=== PATIENT | male | born 1970 | race Caucasian/White ===

== ENCOUNTER 2018-07-22 11:37 | Inpatient (IN) | payer BC, MEDICAID ==
[2018-07-22 12:13] LABS: BASOPHILS # (AUTO) 0.2 10^3/uL (0.0-0.1); BASOPHILS % (AUTO) 2.1 %; EOSINOPHILS # (AUTO) 0.4 10^3/uL (0.0-0.7); EOSINOPHILS % (AUTO) 3.6 %; HGB - HEMOGLOBIN 17.7 g/dL (14.0-18.0); LYMPHOCYTES # (AUTO) 2.7 10^3/uL (1.5-3.5); LYMPHOCYTES % (AUTO) 24.1 %; MEAN CORPUSCULAR HEMOGLOBIN 31.5 pg (27.0-31.0); MEAN CORPUSCULAR HGB CONC 34.2 g/dL (32.0-36.0); MEAN PLATELET VOLUME 7.8 fL (7.4-11.4); MONOCYTES # (AUTO) 0.8 10^3/uL (0.0-1.0); MONOCYTES % (AUTO) 7.2 %; NEUTROPHILS # (AUTO) 7.2 10^3/uL (1.5-6.6); PLT - PLATELET COUNT 237 10^3/uL (130-450); RED BLOOD COUNT 5.63 10^6/uL (4.70-6.10); RED CELL DISTRIBUTION WIDTH 13.1 % (12.0-15.0); WHITE BLOOD COUNT 11.4 x10^3/uL (4.8-10.8)
[2018-07-22 12:20] LABS: ALBUMIN 3.8 g/dL (3.2-5.5); BILIRUBIN,TOTAL 0.5 mg/dL (0.2-1.0); CREATININE 0.9 mg/dL (0.6-1.2); TOTAL PROTEIN 7.6 g/dL (6.7-8.2)
--- NOTE | 2018-07-22 12:34 | XRAY Report ---
Reason: chest pain Procedure Date: 07/22/2018 Accession Number: [id number] / [id number] Procedure: XR - Chest 1 View X-Ray CPT Code: 87520 FULL RESULT: EXAM: CHEST RADIOGRAPHY EXAM DATE: 07/22/2018 12:19 PM. CLINICAL HISTORY: Chest pain. COMPARISON: None. TECHNIQUE: 1 view. FINDINGS: Lungs/Pleura: No focal opacities evident. No pleural effusion. No pneumothorax. Mediastinum: Within exam limitations, the cardiomediastinal contour is normal. Other: None. IMPRESSION: Limited examination with no acute cardiopulmonary abnormality detected. RADIA
[2018-07-22] MEDS ORDERED: SODIUM CHLORIDE 0.9% 1,000 ML IV ONE (12:57)
[2018-07-22] MEDS ORDERED: METOPROLOL 5 MG/5 ML VIAL IVP STA (13:10)
[2018-07-22] MEDS ORDERED: ASPIRIN CHEW 81 MG TABLET PO STA (13:10)
--- NOTE | 2018-07-22 13:13 | ED Physician Documentation ---
PD HPI CHEST PAIN - Stated complaint Stated Complaint: SOA - Chief complaint Chief Complaint: Cardiac - History obtained from History obtained from: Patient, Family - History of Present Illness Timing - onset: How many hours ago (2) Timing - onset during: Rest Timing - duration: Hours (2) Timing - details: Gradual onset Pain level max: 4 Pain level now: 4 Quality: Pressure, Tightness Location: Substernal Radiation: Left upper extremity, Right upper extremity Improved by: Nothing Worsened by: Other (nothing) Associated symptoms: Shortness of air, Diaphoresis, Nausea, Feeling faint / dizzy. No: Vomiting, General Weakness, Palpitations, Cough Similar symptoms before: Has not had sx before Recently seen: Not recently seen Review of Systems Ten Systems: 10 systems reviewed and negative Constitutional: denies: Fever, Chills Throat: denies: Sore throat Cardiac: denies: Palpitations, Pedal edema, Calf pain Respiratory: denies: Dyspnea, Cough, Wheezing GI: denies: Abdominal Pain, Nausea, Vomiting, Diarrhea Skin: denies: Rash Musculoskeletal: denies: Neck pain, Back pain Neurologic: denies: Focal weakness, Numbness PD PAST MEDICAL HISTORY - Past Medical History Past Medical History: Yes Cardiovascular: Hypertension Endocrine/Autoimmune: Other Other Past Medical History: had diabetes, lost weight. - Past Surgical History Past Surgical History: No - Present Medications Home Medications: Ambulatory Orders Medication Instructions Recorded Confirmed No Known Home Medications 07/22/18 07/22/18 - Allergies Allergies/Adverse Reactions: Allergies Allergy/AdvReac Type Severity Reaction Status Date / Time No Known Drug Allergies Allergy Verified 07/22/18 11:53 - Social History Does the pt smoke?: Yes Smoking Status: Current every day smoker Does the pt drink ETOH?: Yes Does the pt have substance abuse?: No PD ED PE NORMAL - Vitals Vital signs reviewed: Yes - General General: Alert and oriented X 3, No acute distress, Well developed/nourished, Other (obese male) - HEENT HEENT: PERRL, Moist mucous membranes - Neck Neck: Supple, no meningeal sign - Cardiac Cardiac: RRR, Strong equal pulses - Respiratory Respiratory: No respiratory distress, Clear bilaterally - Abdomen Abdomen: Soft, Non tender, Non distended - Derm Derm: Warm and dry - Extremities Extremities: No edema, No calf tenderness / cord - Neuro Neuro: Alert and oriented X 3, environmental education specialist 2-12 intact, No motor deficit, No sensory deficit - Psych Psych: Normal mood, Normal affect Results - Vitals Vitals: Vital Signs - 24 hr 07/22/18 07/22/18 07/22/18 11:40 13:09 13:20 Temperature 36 C L Heart Rate 98 102 H 89 Respiratory 18 19 19 Rate Blood Pressure 192/121 H 198/125 H 181/108 H O2 Saturation 99 98 98 07/22/18 13:32 Temperature Heart Rate 91 Respiratory 23 Rate Blood Pressure 176/121 H O2 Saturation 96 Oxygen O2 Source Room air - EKG (time done) 1143 Rate: Rate (enter#) (103) Rhythm: Sinus tachycardia [place]: Normal Intervals: Normal DE QRS: Normal Ischemia: Normal ST segments - Labs Labs: Laboratory Tests 07/22/18 07/22/18 07/22/18 11:53 11:53 11:53 WBC RBC Hgb Hct MCV MCH MCHC RDW Plt Count MPV Neut # (Auto) Lymph # (Auto) [place] # (Auto) Eos # (Auto) Baso # (Auto) Absolute Nucleated RBC Nucleated RBC % PT INR D-Dimer Sodium Potassium Chloride Carbon Dioxide Anion Gap BUN Creatinine Estimated GFR (MDRD) Glucose Glycated Hemoglobin Estim Average Glucose Calcium Phosphorus 3.5 Magnesium 2.6 Total Bilirubin GGT 55 AST ALT Alkaline Phosphatase Troponin I B-Natriuretic Peptide 26 Total Protein Albumin Globulin Albumin/Globulin Ratio Lipase Ethyl Alcohol < 5.0 07/22/18 07/22/18 07/22/18 11:55 11:55 11:55 WBC 11.4 H RBC 5.63 Hgb 17.7 Hct 51.8 MCV 92.0 MCH 31.5 H MCHC 34.2 RDW 13.1 Plt Count 237 MPV 7.8 Neut # (Auto) 7.2 H Lymph # (Auto) 2.7 [place] # (Auto) 0.8 Eos # (Auto) 0.4 Baso # (Auto) 0.2 H Absolute Nucleated RBC 0.01 Nucleated RBC % 0.0 PT INR D-Dimer Sodium 129 L Potassium 4.3 Chloride 93 L Carbon Dioxide 22 Anion Gap 14.0 H BUN 11 Creatinine 0.9 Estimated GFR (MDRD) 90 Glucose 238 H Glycated Hemoglobin Estim Average Glucose Calcium 9.0 Phosphorus Magnesium Total Bilirubin 0.5 GGT AST 27 ALT 36 Alkaline Phosphatase 69 Troponin I 0.06 B-Natriuretic Peptide Total Protein 7.6 Albumin 3.8 Globulin 3.8 Albumin/Globulin Ratio 1.0 Lipase 40 Ethyl Alcohol 07/22/18 07/22/18 07/22/18 11:55 11:55 13:16 WBC RBC Hgb Hct MCV MCH MCHC RDW Plt Count MPV Neut # (Auto) Lymph # (Auto) [place] # (Auto) Eos # (Auto) Baso # (Auto) Absolute Nucleated RBC Nucleated RBC % PT 10.7 INR 1.0 D-Dimer < 200.0 L Sodium Potassium Chloride Carbon Dioxide Anion Gap BUN Creatinine Estimated GFR (MDRD) Glucose Glycated Hemoglobin 8.5 H Estim Average Glucose 197 H Calcium Phosphorus Magnesium Total Bilirubin GGT AST ALT Alkaline Phosphatase Troponin I B-Natriuretic Peptide Total Protein Albumin Globulin Albumin/Globulin Ratio Lipase Ethyl Alcohol - Rads (name of study) cxr Radiology: Prelim report reviewed, EMP read contemporaneously, See rad report (no acute disease) PD MEDICAL DECISION MAKING - ED course Complexity details: reviewed results, re-evaluated patient, considered differential, d/w patient, d/w family, d/w [employer] consultant ED course: 48-year-old male with chest pain today, concerning for acute coronary syndrome. He appears to be diabetic based on his elevated blood glucose, hypertensive, smokes and is obese and lives a sedentary lifestyle. High risk for cardiac etiology. Discussed the case with Dr. Beltran, hospitalist who accepts. Patient was given metoprolol and aspirin here. This document was made in part using voice recognition software. While efforts are made to proofread this document, sound alike and grammatical errors may occur. Departure - Departure Disposition: ED Place in Observation Clinical Impression: Chest pain Qualifiers: Chest pain type: unspecified Qualified Code(s): R07.9 - Chest pain, unspecified Hypertension Qualifiers: Hypertension type: unspecified Qualified Code(s): I10 - Essential (primary) hypertension Diabetes Qualifiers: Diabetes mellitus type: type 2 Diabetes mellitus trouble clerk insulin use: without usp use Diabetes mellitus complication status: with unspecified complications Qualified Code(s): E11.8 - Type 2 diabetes mellitus with unspecified complications Condition: Stable Discharge Date/Time: 07/22/18 14:46
[2018-07-22] MEDS ORDERED: ACETAMINOPHEN 325 MG TABLET PO PRN (13:33)
[2018-07-22] MEDS ORDERED: PROCHLORPERAZINE 10 MG/2 ML VIAL IVP PRN (13:33)
[2018-07-22] MEDS ORDERED: SODIUM CHLORIDE FLUSH 0.9% 10 ML SYRINGE IVP PRN (13:33)
[2018-07-22] MEDS ORDERED: HYDROmorphone 1 MG/ML CARPUJECT IVP PRN (13:33)
[2018-07-22 14:03] LABS: HB2 TOTAL 20.7 g/dL; HEMOGLOBIN A1C 1.44 g/dL; HEMOGLOBIN A1C % 8.5 % (4.6-6.2)
[2018-07-22 14:10] LABS: PT - PROTHROMBIN TIME 10.7 secs (9.9-12.6)
[2018-07-22 14:11] LABS: MAGNESIUM 2.6 mg/dL (1.7-2.8); PHOSPHORUS 3.5 mg/dL (2.5-4.6)
[2018-07-22] MEDS ORDERED: NITROGLYCERIN SL 0.4 MG TABLET SL PRN (14:45)
[2018-07-22] MEDS: NITROGLYCERIN 2% PASTE TOP SCH ×2 (15:40→22:25)
[2018-07-22] MEDS: PANTOPRAZOLE 40 MG TABLET PO SCH (15:40)
[2018-07-22] MEDS: METOPROLOL TARTRATE 25 MG TABLET PO SCH (15:41)
[2018-07-22] MEDS ORDERED: NICOTINE 14 MG PATCH TOP SCH (16:00)
[2018-07-22] MEDS: INSULIN ASPART 300 UNIT/3 ML PEN SUBQ SCH ×2 (17:37→20:29)
[2018-07-22] MEDS: SODIUM CHLORIDE FLUSH 0.9% 10 ML SYRINGE IVP SCH (17:37)
[2018-07-22] MEDS ORDERED: ATORVASTATIN 40 MG TABLET PO SCH (18:25)
[2018-07-22 18:41] LABS: BILIRUBIN,URINE NEGATIVE (NEGATIVE); CLARITY,URINE CLEAR (CLEAR); GLUCOSE, URINE (UA) 100 mg/dL (NEGATIVE); KETONES,URINE (UA) NEGATIVE (NEGATIVE); LEUKOCYTE ESTERASE, URINE NEGATIVE (NEGATIVE); NITRITE,URINE NEGATIVE (NEGATIVE); OCCULT BLOOD,URINE NEGATIVE (NEGATIVE); PROTEIN,URINE 100 mg/dL (NEGATIVE); UROBILINOGEN,URINE 0.2 (NORMAL) E.U./dL (NORMAL)
[2018-07-22] MEDS ORDERED: HEPARIN 5,000 UNIT/ML VIAL IVP ONE (18:45)
[2018-07-22] MEDS ORDERED: CLOPIDOGREL 300 MG TABLET PO ONE (18:57)
[2018-07-22] MEDS: HEPARIN 25000UNITS/500ML (D5W) 25,000 UNIT/500 ML BAG IV SCH (19:09)
[2018-07-22 19:11] LABS: RBC,URINE None Seen /HPF (0-5); SQUAMOUS EPITHELIAL CELL,UR NONE SEEN (<= Few)
[2018-07-22 19:12] LABS: BACTERIA,URINE None Seen /HPF (None Seen)
[2018-07-22] MEDS: chlordiazePOXIDE 25 MG CAPSULE PO SCH ×2 (19:47→23:56)
--- NOTE | 2018-07-22 20:24 | HISTORY & PHYSICAL EXAMINATION ---
DATE OF SERVICE: 07/22/2018 Physician: Ethel Vogt MD HISTORY OF PRESENT ILLNESS: This is a 48-year-old white man who is not on any medications, has not seen a doctor in about 10-15 years, is moving to [facility] from [place] to relocate his business here. The patient describes a history of being told he had diabetes 15 years ago, and he was on metformin and Lipitor for a while, was able to stop his heavy drinking and follow a diet, which helped him lose about 70 pounds in 6 months, and he was able to come off of metformin. He has also been on no medications whatsoever for about 8-1/2 years, he states. Two months ago, he started to develop foot "tingling", which he had when his diabetes was diagnosed 15 years ago; therefore, he thought his sugars were again high, but he has not sought medical care. Approximately 3 weeks ago, he started to develop episodes of anterior chest pain with radiation to the neck, shoulders, and down both arms, along with diaphoresis and shortness of breath, which would usually occur after eating an excessively big meal, but also at other times, not necessarily with exertion. He was worried enough to call his adult daughter to stay with him during these events and would wait them out, took nothing for them. He had a similar event today while he was just sitting, not after a large meal, it lasted longer and was more severe than the previous ones, he rated this 7/10, and had the associated symptoms. The patient tried to take Tums for this, and there was no effect today. Because of its worse presentation, he wanted to come to the emergency room. By the time he was in transit, the discomfort was rated 2/10, and on arrival, it was already gone and has not recurred. The patient remembers having an EKG 15 years ago, when there was an episode of indigestion, but has never had any other cardiac testing. He states that the old indigestion is unlike these current symptoms. MEDICATIONS: None. ALLERGIES: NONE. SOCIAL HISTORY: The patient is a 1 to 1-1/2 pack a day smoker daily, drinks a 12-pack of beer a day, plus occasionally binges using vodka. His last beer intake was last night, which is now 24 hours ago. He does not use marijuana and uses no illicit drugs. 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 He is , his adult daughter lives with him. FAMILY HISTORY: Mother of valvular heart disease complications, father of alcoholic cardiomyopathy. He has 1 daughter, who is healthy. He has no other children. He has no brothers or sisters. REVIEW OF SYSTEMS: A comprehensive review of systems was performed, and the pertinent positives are listed above, the rest are negative. PHYSICAL EXAMINATION GENERAL: Obese white male. He is currently in no distress, but is somewhat fidgety and does appear stressed regarding our discussion of his diagnosis. VITAL SIGNS: Blood pressure in the emergency room was 192/121, heart rate 98- 102, in sinus rhythm. Currently, his blood pressure is 169/88 with a pulse of 86, afebrile, on room air his oxygen saturation is 97%. HEENT: Unremarkable. He appears well kempt, has a large cheema. NECK: Without JVD or carotid bruits. LUNGS: Clear. HEART: Heart sounds normal. No murmur. ABDOMEN: Distended, with probable hepatomegaly, possible fluid wave, possible splenomegaly. Normal bowel sounds. No tenderness. No guarding or rebound. EXTREMITIES: No clubbing, cyanosis, or edema. Good dorsalis pedis pulses. NEUROLOGIC: Grossly intact. LABORATORY DATA: Sodium 129, potassium 4.3, BUN 11, creatinine 0.9, glucose 238. A1c 8.5. Calcium normal, phosphorus normal, magnesium 2.6, GGT 55, liver tests normal, lipase normal. BNP 26. The first troponin was 0.06. The next troponin is elevated at 0.55. DIAGNOSTIC DATA: EKG: Sinus tachycardia, within normal limits. Chest x-ray: Within normal limits. A bedside Echo was also done, which shows an LVEF of 50% with description of global hypokinesis, not regional. IMPRESSION/DIAGNOSES 1. Acute cft-OS-wdkyegagf myocardial infarction. 2. Cardiomyopathy. 3. Diabetes, uncontrolled. 4. Hypertension, uncontrolled. 5. Tobacco abuse. 6. History of hyperlipidemia. 7. Alcohol abuse. 8. Hyponatremia. PLAN: Patient was to be placed in Observation status for management of blood pressure, glucose, and a rule out VT protocol, but he will be admitted to the ICU, started on IV heparin, get a Plavix bolus, Lipitor now, start nitrates and beta blockers, daily aspirin, and have arrangements for transfer for coronary angiogram. The procedure, risks, and benefits were described to the patient, and he is agreeable to the plan, and the daughter is in the room. The Echo is suspicious for him already having the beginning of an alcoholic cardiomyopathy. Beta blockers, specifically Metoprolol over Coreg, will be chosen in light of the acute VT. Cycle complete troponins until they peak and reverse. Obtain an EKG in the morning to evaluate for changes. Begin nitro paste, plus the beta dalton for blood pressure control, and if BP is still elevated, would potentially add Norvasc, which would give coronary vasodilation plus blood pressure control. Start a nicotine patch at 21 mg topically daily because of his high cigarette use. Begin Librium on a scheduled protocol to help prevent him going into DTs, especially during an acute VT. CIWA protocol and p.r.n. Ativan IV will also be ordered. The hyponatremia may be from his beer potomania, and will watch his BMP daily. His diabetes will be managed with a carbohydrate-controlled diet, sliding scale insulin, and this was explained to the patient. In the future, he will probably return back to his metformin plus have aggressive diabetic management. A fasting a.m. lipid panel will be ordered. CODE STATUS: FULL CODE. DEEP VENOUS THROMBOSIS PROPHYLAXIS: Pharmacotherapy. ATTESTATION: The patient is expected to be discharged and transferred to another facility within 96 hours: Yes. TD: 07/22/2018 19:48 STAN
[2018-07-22] MEDS ORDERED: ENOXAPARIN 80 MG/0.8 ML SYRINGE SUBQ SCH (21:00)
[2018-07-22 21:19] LABS: MUDS CUTOFF CONCENTRATIONS CUTOFF CONC BELOW:
[2018-07-22 21:31] LABS: AMPHETAMINE SCREEN,URINE NEGATIVE (NEGATIVE); BENZODIAZEPINES SCREEN, URINE NEGATIVE (NEGATIVE); COCAINE SCREEN URINE NEGATIVE (NEGATIVE); METHADONE SCREEN, URINE NEGATIVE (NEGATIVE); METHAMPHETAMINES SCREEN, URINE NEGATIVE (NEGATIVE); OPIATE SCREEN, URINE NEGATIVE (NEGATIVE); TRICYCLIC ANTIDEPRESSANT,URINE NEGATIVE (NEGATIVE)
[2018-07-22 21:32] LABS: OXYCODONE SCREEN, URINE NEGATIVE (NEGATIVE); PROPOXYPHENE SCREEN, URINE NEGATIVE (NEGATIVE)
[2018-07-22] MEDS ORDERED: METOPROLOL 5 MG/5 ML VIAL IVP SCH (21:53)
[2018-07-23] MEDS ORDERED: METOPROLOL 5 MG/5 ML VIAL IVP PRN (01:39)
[2018-07-23] MEDS: SODIUM CHLORIDE FLUSH 0.9% 10 ML SYRINGE IVP SCH ×2 (02:12→10:47)
[2018-07-23] MEDS: NITROGLYCERIN 2% PASTE TOP SCH ×2 (04:04→09:39)
[2018-07-23 06:37] LABS: BASOPHILS # (AUTO) 0.1 10^3/uL (0.0-0.1); BASOPHILS % (AUTO) 1.2 %; EOSINOPHILS # (AUTO) 0.2 10^3/uL (0.0-0.7); EOSINOPHILS % (AUTO) 3.2 %; HGB - HEMOGLOBIN 16.1 g/dL (14.0-18.0); LYMPHOCYTES # (AUTO) 2.8 10^3/uL (1.5-3.5); LYMPHOCYTES % (AUTO) 36.2 %; MEAN CORPUSCULAR HEMOGLOBIN 31.5 pg (27.0-31.0); MEAN CORPUSCULAR HGB CONC 33.9 g/dL (32.0-36.0); MEAN CORPUSCULAR VOLUME 92.7 fL (80.0-94.0); MEAN PLATELET VOLUME 7.4 fL (7.4-11.4); MONOCYTES # (AUTO) 0.7 10^3/uL (0.0-1.0); MONOCYTES % (AUTO) 8.8 %; NEUTROPHILS # (AUTO) 3.9 10^3/uL (1.5-6.6); NEUTROPHILS % (AUTO) 50.6 %; PLT - PLATELET COUNT 194 10^3/uL (130-450); WHITE BLOOD COUNT 7.6 x10^3/uL (4.8-10.8)
[2018-07-23] MEDS: chlordiazePOXIDE 25 MG CAPSULE PO SCH ×2 (06:48→11:42)
[2018-07-23] MEDS: PANTOPRAZOLE 40 MG TABLET PO SCH (06:48)
[2018-07-23 06:53] LABS: ALBUMIN 3.2 g/dL (3.2-5.5); ALKALINE PHOSPHATASE 59 IU/L (42-121); ALT ALANINE AMINOTRANSFERASE 34 IU/L (10-60); AST ASPARTATE AMINOTRANSFERASE 36 IU/L (10-42); BILIRUBIN,TOTAL 0.6 mg/dL (0.2-1.0); BUN - BLOOD UREA NITROGEN 8 mg/dL (6-20); CALCIUM 8.6 mg/dL (8.5-10.3); CARBON DIOXIDE - CO2 23 mmol/L (21-32); CHLORIDE 96 mmol/L (101-111); CHOLESTEROL 271 mg/dL; CREATININE 0.8 mg/dL (0.6-1.2); GFR - MDRD 104 (>89); GLUCOSE 170 mg/dL (70-100); HDL CHOLESTEROL 27 mg/dL; PHOSPHORUS 4.2 mg/dL (2.5-4.6); SODIUM 131 mmol/L (135-145); TOTAL PROTEIN 6.3 g/dL (6.7-8.2)
[2018-07-23 07:15] LABS: LDL CHOLESTEROL,DIRECT 188 mg/dL
[2018-07-23] MEDS ORDERED: CLOPIDOGREL 75 MG TABLET PO SCH (09:00)
[2018-07-23] MEDS ORDERED: ENOXAPARIN 40 MG/0.4 ML SYRINGE SUBQ SCH (09:00)
[2018-07-23] MEDS ORDERED: NICOTINE 21 MG PATCH TOP SCH (09:00)
[2018-07-23] MEDS ORDERED: ASPIRIN EC 81 MG TABLET PO SCH (09:00)
[2018-07-23] MEDS ORDERED: PRENATAL VITAMIN TABLET PO SCH (09:00)
[2018-07-23] MEDS ORDERED: POLYETHYLENE GLYCOL 3350 17 GM PACKET PO SCH (09:00)
[2018-07-23] MEDS ORDERED: THIAMINE 100 MG TABLET PO SCH (09:00)
[2018-07-23] MEDS ORDERED: INSULIN REGULAR HUMAN 100 UNIT/1 ML 10 ML MDV SUBQ SCH (09:09)
[2018-07-23] MEDS: METOPROLOL TARTRATE 25 MG TABLET PO SCH (09:19)
[2018-07-23] MEDS: HEPARIN 25000UNITS/500ML (D5W) 25,000 UNIT/500 ML BAG IV SCH (09:36)
[2018-07-23] MEDS ORDERED: FENOFIBRATE 48 MG TABLET PO SCH (10:00)
[2018-07-23] MEDS ORDERED: INSULIN ASPART 300 UNIT/3 ML PEN SUBQ SCH (12:00)
[2018-07-23 13:09] VITALS: BP 156/95
--- NOTE | 2018-07-23 13:11 | Discharge Plan ---
Discharge Plan Disposition: 02 Transfer Acute Care Hosp Condition: Stable No Smoking: If you smoke, Please STOP! Call for help.
== END 2018-07-23 13:45 | disposition short-term general hospital (02) | DRG 637 ==
LOC: ED 11:37 → OBS 13:33 → OBSVTOIN 17:45 → ICU 18:26
PROVIDERS: ADMIT Internal Medicine; ATTEND Internal Medicine
DX: E11.9 Type 2 diabetes mellitus without complications (principal); I21.4 Non-ST elevation (NSTEMI) myocardial infarction; I42.6 Alcoholic cardiomyopathy; E87.1 Hypo-osmolality and hyponatremia; E11.65 Type 2 diabetes mellitus with hyperglycemia; I10 Essential (primary) hypertension; F17.210 Nicotine dependence, cigarettes, uncomplicated; F10.10 Alcohol abuse, uncomplicated; E78.5 Hyperlipidemia, unspecified; E78.1 Pure hyperglyceridemia
CPT/HCPCS: 36415; 71045; 80053; 80061; 80306; 80320; 81001; 82977; 83036; 83690; 83721; 83735; 83880; 84100; 84484; 85025; 85379; 85520; 85610; 87150; 93005; 93306; 96361; 96374; 99284; A9270; G0378; J1815; 81003; 87086

== ENCOUNTER 2018-07-23 13:42 | Outpatient (CLI) | payer MEDICAID | END 2018-07-23 13:43 | disposition short-term general hospital (02) | LOC: EMS 13:42 | PROVIDERS: ATTEND Surgery | DX: I21.4 Non-ST elevation (NSTEMI) myocardial infarction (principal) | CPT/HCPCS: A0425; A0426 ==

== ENCOUNTER 2019-01-15 18:25 | Emergency (ER) | payer MEDICAID ==
--- NOTE | 2019-01-15 19:28 | XRAY Report ---
Reason: Chest Pain Procedure Date: 01/15/2019 Accession Number: [id number] / [id number] Procedure: XR - Chest 1 View X-Ray CPT Code: 10430 FULL RESULT: EXAM: CHEST RADIOGRAPHY EXAM DATE: 01/15/2019 07:20 PM. CLINICAL HISTORY: Chest Pain. COMPARISON: CHEST 1 VIEW 07/22/2018 12:04 PM. TECHNIQUE: 1 view. FINDINGS: Lungs/Pleura: Unchanged linear basilar pulmonary opacities could reflect atelectasis. No other consolidation. No evidence of pleural effusion or pneumothorax. Mediastinum: Stable heart size and mediastinum. Other: None. IMPRESSION: 1. No radiographic evidence for acute cardiopulmonary process. RADIA
[2019-01-15 19:37] LABS: BASOPHILS # (AUTO) 0.1 10^3/uL (0.0-0.1); BASOPHILS % (AUTO) 0.5 %; EOSINOPHILS # (AUTO) 0.2 10^3/uL (0.0-0.7); EOSINOPHILS % (AUTO) 1.7 %; HGB - HEMOGLOBIN 15.5 g/dL (14.0-18.0); LYMPHOCYTES # (AUTO) 2.3 10^3/uL (1.5-3.5); LYMPHOCYTES % (AUTO) 21.3 %; MEAN CORPUSCULAR HEMOGLOBIN 30.8 pg (27.0-31.0); MEAN CORPUSCULAR HGB CONC 34.3 g/dL (32.0-36.0); MEAN CORPUSCULAR VOLUME 89.9 fL (80.0-94.0); MEAN PLATELET VOLUME 9.5 fL (7.4-11.4); MONOCYTES # (AUTO) 0.7 10^3/uL (0.0-1.0); NEUTROPHILS # (AUTO) 7.6 10^3/uL (1.5-6.6); NEUTROPHILS % (AUTO) 70.1 %; PLT - PLATELET COUNT 229 10^3/uL (130-450); RED BLOOD COUNT 5.03 10^6/uL (4.70-6.10); RED CELL DISTRIBUTION WIDTH 12.4 % (12.0-15.0); WHITE BLOOD COUNT 10.8 x10^3/uL (4.8-10.8)
[2019-01-15 19:56] LABS: ALBUMIN 3.7 g/dL (3.2-5.5); ALBUMIN/GLOBULIN RATIO 1.1 (1.0-2.2); BILIRUBIN,TOTAL 0.4 mg/dL (0.2-1.0); CALCIUM 8.5 mg/dL (8.5-10.3); CREATININE 0.8 mg/dL (0.6-1.2); TOTAL PROTEIN 7.1 g/dL (6.7-8.2)
--- NOTE | 2019-01-15 19:57 | ED Physician Documentation ---
History of Present Illness - Stated complaint Stated Complaint: CP - Chief complaint Chief Complaint: Cardiac - Additonal information Additional information: This is a 48-year-old male with a history of obesity, coronary artery disease who presents with resolved chest pain. Patient had a catheterization in late June for angina, which showed no severe blockage or stentable stenosis, his material handler loader reportedly told him he had one area of a little bit of narrowing. He has had some stable angina since then, which is treated with nitroglycerin. He follows with [facility] in [place]. He began developing his typical angina which he describes as substernal pressure was around 4 PM this afternoon, he states he took a nitroglycerin and improved but it was his last tablet so he began to become anxious about this, so he came here for further evaluation and for refill of his nitro. Currently his pain is 1 out of 10, and he is feeling well. No shortness of breath, diaphoresis, nausea or vomiting. No radiation of his pain. He took 1 baby aspirin earlier Review of Systems Constitutional: denies: Fever Nose: denies: Rhinorrhea / runny nose Cardiac: reports: Chest pain / pressure Respiratory: denies: Dyspnea GI: denies: Abdominal Pain, Vomiting Skin: denies: Rash Musculoskeletal: denies: Neck pain Neurologic: reports: Reviewed and negative. denies: Generalized weakness Psychiatric: reports: Reviewed and negative Endocrine: reports: Reviewed and negative Immunocompromised: reports: Reviewed and negative PD PAST MEDICAL HISTORY - Past Medical History Cardiovascular: Hypertension Endocrine/Autoimmune: Other - Past Surgical History Past Surgical History: No - Present Medications Home Medications: Ambulatory Orders Medication Instructions Recorded Confirmed Aspirin 81 mg PO DAILY 01/15/19 01/15/19 Atorvastatin Calcium [Lipitor] 80 mg PO DAILY 01/15/19 01/15/19 Clopidogrel [Plavix] 75 mg PO DAILY 01/15/19 01/15/19 Losartan [Cozaar] 100 mg PO DAILY 01/15/19 01/15/19 Metoprolol Tartrate 100 mg PO DAILY 01/15/19 01/15/19 Metoprolol Tartrate [Lopressor] 50 mg PO BID #30 tablet 01/15/19 Nitroglycerin [Nitrostat] 0.4 mg SL PRN PRN #30 tab.subl 01/15/19 Varenicline Tartrate [Chantix] 1 mg PO DAILY 01/15/19 01/15/19 - Allergies Allergies/Adverse Reactions: Allergies Allergy/AdvReac Type Severity Reaction Status Date / Time No Known Drug Allergies Allergy Verified 07/22/18 11:53 - Social History Does the pt smoke?: Yes Smoking Status: Current every day smoker Does the pt drink ETOH?: Yes Does the pt have substance abuse?: No PD ED PE NORMAL - Vitals Vital signs reviewed: Yes - General General: Alert and oriented X 3, No acute distress - HEENT HEENT: PERRL - Neck Neck: Supple, no meningeal sign - Cardiac Cardiac: Other (Tachycardic, regular rhythm) - Respiratory Respiratory: Clear bilaterally - Abdomen Abdomen: Soft, Non tender, Non distended - Derm Derm: Warm and dry - Extremities Extremities: No deformity - Neuro Neuro: Alert and oriented X 3 - Psych Psych: Normal mood, Normal affect Results - Vitals Vitals: Vital Signs - 24 hr 01/15/19 01/15/19 01/15/19 18:36 19:16 20:20 Temperature 36.9 C Heart Rate 114 H 115 H 107 H Respiratory 18 17 17 Rate Blood Pressure 169/115 H 151/101 H 187/96 H O2 Saturation 98 98 96 01/15/19 22:03 Temperature Heart Rate 90 Respiratory 17 Rate Blood Pressure 168/103 H O2 Saturation 98 Oxygen O2 Source Room air - EKG (time done) 21:28 Other comments: Other comments (Rate 92, rhythm sinus, there is a nonspecific IVCD, no significant ST elevation or depression, no abnormal T wave inversions.) - Labs Labs: Laboratory Tests 01/15/19 01/15/19 01/15/19 19:30 19:30 19:30 WBC 10.8 RBC 5.03 Hgb 15.5 Hct 45.2 MCV 89.9 MCH 30.8 MCHC 34.3 RDW 12.4 Plt Count 229 MPV 9.5 Neut # (Auto) 7.6 H Lymph # (Auto) 2.3 [place] # (Auto) 0.7 Eos # (Auto) 0.2 Baso # (Auto) 0.1 Absolute Nucleated RBC 0.00 Nucleated RBC % 0.0 Sodium 134 L Potassium 4.5 Chloride 99 L Carbon Dioxide 24 Anion Gap 11.0 BUN 10 Creatinine 0.8 Estimated GFR (MDRD) 104 Glucose 209 H Calcium 8.5 Total Bilirubin 0.4 AST 26 ALT 34 Alkaline Phosphatase 67 Troponin I High Sens 9.2 Total Protein 7.1 Albumin 3.7 Globulin 3.4 Albumin/Globulin Ratio 1.1 Lipase 27 01/15/19 21:20 WBC RBC Hgb Hct MCV MCH MCHC RDW Plt Count MPV Neut # (Auto) Lymph # (Auto) [place] # (Auto) Eos # (Auto) Baso # (Auto) Absolute Nucleated RBC Nucleated RBC % Sodium Potassium Chloride Carbon Dioxide Anion Gap BUN Creatinine Estimated GFR (MDRD) Glucose Calcium Total Bilirubin AST ALT Alkaline Phosphatase Troponin I High Sens 10.6 Total Protein Albumin Globulin Albumin/Globulin Ratio Lipase - Rads (name of study) CXR Radiology: Other (No acute cardiopulmonary abnormality) PD MEDICAL DECISION MAKING - ED course Complexity details: considered differential (ACS, angina, pneumothorax, pneumonia, PE, dysrhytmia) ED course: On arrival patient has minimal chest discomfort, he states the main reason he came is because he ran out of nitroglycerin and he was anxious that His chest pain may return and he would not be able to treat it. EKG shows no convincing signs of ischemia. He is slightly tachycardic and states that he has been out of his metoprolol becauase he is waiting on insurance to approve his new dose. No leg swelling, shortness of breath, history of blood clots, recent immobilization, and his history of his typical chest pressure that resolved makes PE extremely unlikely. CXR unremarkable. 2 high-sensitivity troponins are both within normal limits. Given his fairly recent catheterization, resolution of his pain, and the tyipcal characteristics of his pain, this appears to be stable angina. He will follow closely with his PCP and return to the ED with any new or worsening chest pain, shortness of breath, or other concerning symptoms. I also discussed he has elevated glucose suggestive of DM, he will follow with his PCP on this. Patient asked for refills of his nitroglycerin and metoprolol, these were given. Departure - Departure Disposition: 01 Home, Self Care Clinical Impression: Stable angina Condition: Good Instructions: ED Chest Pain Angina Stable Follow-Up: Your,Spiral Binder [Other] (For follow up chest discomfort, as soon as possible) Your,PCP [Other] - Within 1 week (For follow up on diabetes) Prescriptions: Metoprolol Tartrate [Lopressor] 50 mg PO BID #30 tablet Nitroglycerin [Nitrostat] 0.4 mg SL PRN PRN #30 tab.subl PRN Reason: Chest Pain Comments: You were seen today for chest pain which improved with nitroglycerin. Your labs are reassuring, this is likely your typical angina, please follow-up closely with your material handler loader. You also have elevated glucose which suggests diabetes, please talk to your primary care provider about restarting medications and lifestyle changes for this. If you are having recurrent chest pain shortness of breath or any other concerning symptoms please return to the emergency department Discharge Date/Time: 01/15/19 22:29
[2019-01-15] MEDS ORDERED: ASPIRIN CHEW 81 MG TABLET PO STA (20:15)
[2019-01-15] MEDS ORDERED: METOPROLOL TARTRATE 50 MG TABLET PO STA (20:37)
[2019-01-15 22:04] VITALS: BP 168/103
[2019-01-15] MEDS ORDERED: NITROGLYCERIN SL 0.4 MG TABLET SL STA (22:22)
== END 2019-01-15 22:29 | disposition home or self-care (01) ==
LOC: ED 18:25
DX: I25.119 Atherosclerotic heart disease of native coronary artery with unspecified angina pectoris (principal); Z98.61 Coronary angioplasty status; R00.0 Tachycardia, unspecified; I10 Essential (primary) hypertension; R73.9 Hyperglycemia, unspecified; E66.9 Obesity, unspecified; F17.200 Nicotine dependence, unspecified, uncomplicated; Z79.82 Long term (current) use of aspirin; Z76.0 Encounter for issue of repeat prescription
CPT/HCPCS: 36415; 71045; 80053; 83690; 84484; 85025; 93005; 99284; A9270

== ENCOUNTER 2019-04-01 22:35 | Emergency (ER) | payer MEDICAID ==
[2019-04-01 22:41] VITALS: BP 150/74
[2019-04-01] MEDS ORDERED: LIDOCAINE VISCOUS 2% 15 ML UDC MM STA (22:49)
[2019-04-01] MEDS ORDERED: OXYMETAZOLINE HCL 100 SPRAYS BOTTLE NAS STA (22:49)
--- NOTE | 2019-04-01 23:02 | ED Physician Documentation ---
PD HPI HEENT - Stated complaint Stated Complaint: NOSEBLEED - Chief complaint Chief Complaint: General - History obtained from History obtained from: Patient - History of Present Illness Timing - onset: Enter time (03:00), Today Timing - details: Abrupt onset, Intermittant Pain level max: 0 Pain level now: 0 Location: Nose Associated symptoms: No: Fever, Congestion, Cough Similar symptoms before: Has not had sx before Recently seen: Not recently seen - Additional information Additional information: c/o atraumatic right nare epistaxis. Onset woke him from sleep at approximately 3 AM this morning and it has been episodic throughout the day. At times he has had large clots with this and he comes to ED for persistent episode over past 30 minutes Review of Systems Constitutional: denies: Fever Ears: denies: Ear pain Nose: reports: Epistaxis. denies: Congestion, Sinus pressure / pain Throat: denies: Sore throat PD PAST MEDICAL HISTORY - Past Medical History Past Medical History: Yes Cardiovascular: Hypertension, [place] Endocrine/Autoimmune: Other - Past Surgical History Past Surgical History: No - Present Medications Home Medications: Ambulatory Orders Medication Instructions Recorded Confirmed Aspirin 81 mg PO DAILY 01/15/19 04/01/19 Atorvastatin Calcium [Lipitor] 40 mg PO DAILY 01/15/19 04/01/19 Clopidogrel [Plavix] 75 mg PO DAILY 01/15/19 04/01/19 Losartan [Cozaar] 100 mg PO DAILY 01/15/19 04/01/19 Metoprolol Tartrate 75 mg PO DAILY 01/15/19 04/01/19 Nitroglycerin [Nitrostat] 0.4 mg SL PRN PRN #30 tab.subl 01/15/19 04/01/19 - Allergies Allergies/Adverse Reactions: Allergies Allergy/AdvReac Type Severity Reaction Status Date / Time No Known Drug Allergies Allergy Verified 04/01/19 22:41 - Social History Does the pt smoke?: Yes Smoking Status: Current every day smoker Does the pt drink ETOH?: Yes Does the pt have substance abuse?: No - Immunizations Immunizations are current?: Yes - POLST Patient has POLST: No PD ED PE NORMAL - Vitals Vital signs reviewed: Yes - General General: Alert and oriented X 3, No acute distress, Well developed/nourished - HEENT HEENT: Moist mucous membranes, Pharynx benign PD ED PE EXPANDED - HEENT HEENT: Other (no active bleeding noted. There is a clot in right nare which comes out when patient blows his nose. Reexamination reveals no active bleeding nor obvious/apparent source of bleeding) Results - Vitals Vitals: Vital Signs - 24 hr 04/01/19 22:39 Heart Rate 112 H Respiratory 14 Rate Blood Pressure 150/74 H O2 Saturation 100 Oxygen O2 Source Room air Procedures - Epistaxis Site: Right Preparation: Clots removed, Lidocaine Treatment: Anterior rhinorocket, Packing inserted Other: Observed - no bleeding, Pt tolerated well PD MEDICAL DECISION MAKING - ED course Complexity details: re-evaluated patient, considered differential, d/w patient ED course: No active bleeding on my exam although he produced a moderate-sized clot of blood when he first came to ED and again on my exam when he blows his nose. He is on plavix and aspirin. without active bleeding nor area s/o source of bleeding, cautery not appropriate. I recommended packing and patient agrees with this. No bleeding during post-packing observation. Departure - Departure Disposition: 01 Home, Self Care Clinical Impression: Epistaxis Condition: Good Instructions: ED Nosebleed, ED Nasal Packing Anterior Removable Discharge Date/Time: 04/02/19 00:13
== END 2019-04-02 00:13 | disposition home or self-care (01) ==
LOC: ED 22:35
DX: R04.0 Epistaxis (principal); I10 Essential (primary) hypertension; Z79.02 Long term (current) use of antithrombotics/antiplatelets; Z79.82 Long term (current) use of aspirin; F17.200 Nicotine dependence, unspecified, uncomplicated
CPT/HCPCS: 30901; 99282; 99283; A9270

== ENCOUNTER 2019-04-02 22:46 | Emergency (ER) | payer MEDICAID ==
[2019-04-02 23:28] LABS: BASOPHILS # (AUTO) 0.1 10^3/uL (0.0-0.1); BASOPHILS % (AUTO) 0.6 %; EOSINOPHILS # (AUTO) 0.2 10^3/uL (0.0-0.7); EOSINOPHILS % (AUTO) 1.6 %; HGB - HEMOGLOBIN 12.3 g/dL (14.0-18.0); LYMPHOCYTES # (AUTO) 3.3 10^3/uL (1.5-3.5); LYMPHOCYTES % (AUTO) 22.6 %; MEAN CORPUSCULAR HEMOGLOBIN 30.8 pg (27.0-31.0); MEAN CORPUSCULAR HGB CONC 34.7 g/dL (32.0-36.0); MEAN CORPUSCULAR VOLUME 88.5 fL (80.0-94.0); MEAN PLATELET VOLUME 9.3 fL (7.4-11.4); MONOCYTES # (AUTO) 1.1 10^3/uL (0.0-1.0); MONOCYTES % (AUTO) 7.4 %; NEUTROPHILS # (AUTO) 9.7 10^3/uL (1.5-6.6); NEUTROPHILS % (AUTO) 67.3 %; PLT - PLATELET COUNT 254 10^3/uL (130-450); RED CELL DISTRIBUTION WIDTH 12.2 % (12.0-15.0); WHITE BLOOD COUNT 14.4 x10^3/uL (4.8-10.8)
--- NOTE | 2019-04-03 00:24 | ED Physician Documentation ---
PD HPI HEENT - Stated complaint Stated Complaint: BLOODY NOSE - Chief complaint Chief Complaint: Heent - History obtained from History obtained from: Patient - History of Present Illness Timing - onset: Yesterday Timing - details: Abrupt onset, Intermittant Pain level max: 0 Pain level now: 0 Location: Nose Recently seen: Emergency Dept (T+R yesterday for same) - Additional information Additional information: T+R from this ED yesterday for atraumatic right nare epistaxis. A 4.5 cm anterior rhino rocket was placed yesterday without recurrence of bleeding during ED observation after the procedure and he was discharged home. He says he woke up a few hours later with small amount of blood from left nare and sensation of something in back of throat which he eventually was able to spit out and this was a large clot of blood. During the day he had episodes of bleeding from left nare as well as episodes of bleeding into back of throat. He felt as though the right nare rhino rocket was slowly deflating and he used a syringe to put more air into the device's balloon with initial good results but tonight he felt as though it was continuing to deflate, and he continued to have episodic bleeding from left nare and posterior o/p. He deflated the balloon and removed it. He says there was no clot adherent to the device. Review of Systems Constitutional: denies: Fever Nose: reports: Epistaxis PD PAST MEDICAL HISTORY - Past Medical History Past Medical History: Yes Cardiovascular: Hypertension, [place] Respiratory: None Neuro: None Endocrine/Autoimmune: Other GI: None : None HEENT: None Psych: None Musculoskeletal: None Derm: None - Past Surgical History Past Surgical History: No Ortho: Other - Present Medications Home Medications: Ambulatory Orders Medication Instructions Recorded Confirmed Aspirin 81 mg PO DAILY 01/15/19 04/02/19 Atorvastatin Calcium [Lipitor] 40 mg PO DAILY 01/15/19 04/02/19 Clopidogrel [Plavix] 75 mg PO DAILY 01/15/19 04/02/19 Losartan [Cozaar] 100 mg PO DAILY 01/15/19 04/02/19 Metoprolol Tartrate 75 mg PO DAILY 01/15/19 04/02/19 Nitroglycerin [Nitrostat] 0.4 mg SL PRN PRN #30 tab.subl 01/15/19 04/02/19 - Allergies Allergies/Adverse Reactions: Allergies Allergy/AdvReac Type Severity Reaction Status Date / Time No Known Drug Allergies Allergy Verified 04/02/19 22:59 - Social History Does the pt smoke?: Yes Smoking Status: Current every day smoker Does the pt drink ETOH?: Yes Does the pt have substance abuse?: No - Immunizations Immunizations are current?: Yes - POLST Patient has POLST: No PD ED PE NORMAL - Vitals Vital signs reviewed: Yes - General General: Alert and oriented X 3, No acute distress, Well developed/nourished - HEENT HEENT: Pharynx benign PD ED PE EXPANDED - HEENT HEENT: Other (no active bleeding in either nare. no blood in posterior oropharynx. ) Results - Vitals Vitals: Vital Signs - 24 hr 04/02/19 04/03/19 22:54 02:51 Temperature 36.9 C 37.1 C Heart Rate 145 H 122 H Respiratory 18 14 Rate Blood Pressure 114/60 159/99 H O2 Saturation 96 99 Oxygen O2 Source Room air - Labs Labs: Laboratory Tests 04/02/19 23:24 WBC 14.4 H RBC 4.00 L Hgb 12.3 L Hct 35.4 L MCV 88.5 MCH 30.8 MCHC 34.7 RDW 12.2 Plt Count 254 MPV 9.3 Neut # (Auto) 9.7 H Lymph # (Auto) 3.3 [place] # (Auto) 1.1 H Eos # (Auto) 0.2 Baso # (Auto) 0.1 Absolute Nucleated RBC 0.00 Nucleated RBC % 0.0 Procedures - Epistaxis Site: Right Preparation: Afrin, Lidocaine Treatment: Ant post rhinorocket Other: Observed - no bleeding, Pt tolerated well PD MEDICAL DECISION MAKING - ED course Complexity details: reviewed results, re-evaluated patient, considered differential, d/w patient ED course: there is no active bleeding on exam but he has several tissues at bedside with clots of blood in them (from blowing nose as well as clots he spat out from posterior o/p prior to my exam). Patient tolerated the longer anterior/posterior rhino rocket packing well and had no bleeding during subsequent ED observation. hemoglobin is 12.3; most recent value was in December when it was 15.5. He is comfortable with d/c home and expresses understanding that he should again return to ED if bleeding continues, and to follow up with ENT or PMD within next few days for reevaluation Departure - Departure Disposition: 01 Home, Self Care Clinical Impression: Epistaxis Condition: Good Instructions: ED Nosebleed Comments: Follow up with ENT (ear/nose/throat). You might need to contact your primary care provider's office and/or your insurance provider for a referral. Discharge Date/Time: 04/03/19 02:51
[2019-04-03] MEDS ORDERED: OXYMETAZOLINE HCL 100 SPRAYS BOTTLE NAS STA (00:51)
[2019-04-03] MEDS ORDERED: LIDOCAINE VISCOUS 2% 15 ML UDC MM STA (00:51)
[2019-04-03 02:52] VITALS: BP 159/99
== END 2019-04-03 02:51 | disposition home or self-care (01) ==
LOC: ED 22:46
DX: R04.0 Epistaxis (principal); I10 Essential (primary) hypertension; F17.200 Nicotine dependence, unspecified, uncomplicated; Z79.02 Long term (current) use of antithrombotics/antiplatelets; Z79.82 Long term (current) use of aspirin
CPT/HCPCS: 30901; 36415; 85025; 99283; A9270

== ENCOUNTER 2020-06-18 00:38 | Outpatient (CLI) | payer MEDICAID | END 2020-06-18 00:39 | disposition critical access hospital (66) | LOC: EMS 00:38 | PROVIDERS: ATTEND Emergency Medicine | DX: R53.81 Other malaise (principal); R42 Dizziness and giddiness | CPT/HCPCS: A0425; A0429; A0999 ==

== ENCOUNTER 2020-06-18 01:05 | Emergency (ER) | payer MEDICAID ==
--- NOTE | 2020-06-18 01:06 | ED Physician Documentation ---
History of Present Illness - Stated complaint Stated Complaint: WEAKNESS, DIZZINES - History obtained from History obtained from: Patient, EMS - History of Present Illness Timing: Enter time (18:00), Today Improved by: rest Worsened by: standing, ambulation (becomes more dizzy/lightheaded) - Additonal information Additional information: BIBA. c/o generalized malaise, dizziness/lightheadedness, feels like he might pass out when standing and ambulating. Symptoms began approximately 6 PM tonight. He notes that he has been drinking alcohol (beer) regularly for past several days, possibly a week. He also c/o tooth pain, left upper tooth x few days which he says is infected by his estimation. He stopped taking his medications (clopidogrel, metoprolol, and atorvostatin) in January when he ran out of these. He acknowledges he shouldn't have just stopped taking these, says "it was easy to use excuses like COVID for not seeing my doctor". FSBS 288 by EMS Review of Systems Constitutional: reports: Fatigue. denies: Fever, Chills, Sweats Throat: reports: Dental pain / toothache Cardiac: reports: Reviewed and negative Respiratory: reports: Reviewed and negative GI: denies: Abdominal Pain, Nausea, Vomiting, Constipation, Diarrhea : denies: Dysuria, Frequency Neurologic: reports: Generalized weakness. denies: Focal weakness, Numbness, Headache PD PAST MEDICAL HISTORY - Past Medical History Past Medical History: Yes Cardiovascular: Hypertension, High cholesterol - Present Medications Home Medications: Ambulatory Orders Medication Instructions Recorded Confirmed Clopidogrel [Plavix] 75 mg PO DAILY 01/15/19 06/18/20 Nitroglycerin [Nitrostat] 0.4 mg SL PRN PRN #30 tab.subl 01/15/19 06/18/20 Atorvastatin Calcium 40 mg PO DAILY #30 tablet 06/18/20 Clopidogrel [Plavix] 75 mg PO DAILY #30 tablet 06/18/20 LORazepam [Ativan] 0.5 mg PO TID PRN #14 tablet 06/18/20 Metoprolol Tartrate [Lopressor] 100 mg PO DAILY #30 tablet 06/18/20 cephALEXin [Keflex] 500 mg PO Q6H #28 06/18/20 - Allergies Allergies/Adverse Reactions: Allergies Allergy/AdvReac Type Severity Reaction Status Date / Time No Known Drug Allergies Allergy Verified 06/18/20 01:16 - Living Situation Living Arrangement: reports: At home - Social History Does the pt drink ETOH?: Yes PD ED PE NORMAL - Vitals Vital signs reviewed: Yes - General General: Alert and oriented X 3, No acute distress, Well developed/nourished - HEENT HEENT: Moist mucous membranes - Neck Neck: Supple, no meningeal sign - Cardiac Cardiac: No murmur, No gallop, No rub - Respiratory Respiratory: No respiratory distress, Clear bilaterally - Abdomen Abdomen: Soft, Non tender - Derm Derm: Normal color, Warm and dry - Extremities Extremities: No edema PD ED PE EXPANDED - HEENT HEENT Visual: 1 - tenderness (tender to percussion #6 with mild gingival erythema and swelling) - Cardiac Cardiac: Tachy, Regular Rhythm Results - Vitals Vitals: Vital Signs - 24 hr 06/18/20 06/18/20 06/18/20 01:05 01:12 01:33 Temperature 35.9 C L Heart Rate 121 H 117 H Respiratory 20 18 18 Rate Blood Pressure 211/118 H 208/98 H O2 Saturation 97 95 06/18/20 06/18/20 06/18/20 01:52 02:03 02:10 Temperature 36.1 C L Heart Rate 100 100 92 Respiratory 20 19 Rate Blood Pressure 108/98 H 182/99 H 182/99 H O2 Saturation 97 95 06/18/20 06/18/20 06/18/20 02:16 02:31 03:25 Temperature 36.3 C L Heart Rate 88 86 90 Respiratory 21 15 18 Rate Blood Pressure 184/89 H 183/99 H 177/97 H O2 Saturation 98 98 99 06/18/20 04:10 Temperature Heart Rate 88 Respiratory 20 Rate Blood Pressure 176/101 H O2 Saturation 100 Oxygen O2 Source Room air - EKG (time done) No standard instances Rate: Rate (enter#) (115), Tachy Rhythm: Sinus tachycardia [place]: Normal Intervals: Normal [place] QRS: Normal Ischemia: Normal ST segments - Labs Labs: Laboratory Tests 06/18/20 06/18/20 06/18/20 01:40 01:40 01:40 WBC 10.6 RBC 5.42 Hgb 17.2 Hct 49.1 MCV 90.6 MCH 31.7 H MCHC 35.0 RDW 11.9 L Plt Count 186 MPV 9.0 Neut # (Auto) 7.9 H Lymph # (Auto) 1.7 [place] # (Auto) 0.7 Eos # (Auto) 0.1 Baso # (Auto) 0.1 Absolute Nucleated RBC 0.00 Nucleated RBC % 0.0 PT 11.0 INR 1.0 APTT 28.6 Sodium 129 L Potassium 4.3 Chloride 93 L Carbon Dioxide 22 Anion Gap 14.0 H BUN 11 Creatinine 0.8 Estimated GFR (MDRD) 103 Glucose 272 H Estimat Average Glucose Hemoglobin A1c % Calcium 8.7 Total Bilirubin 0.8 AST 33 ALT 44 Alkaline Phosphatase 81 Total Protein 7.2 Albumin 3.9 Globulin 3.3 Albumin/Globulin Ratio 1.2 Lipase 33 Urine Color Urine Clarity Urine pH Ur Specific [place] Urine Protein Urine Glucose (UA) Urine Ketones Urine Occult Blood Urine Nitrite Urine Bilirubin Urine Urobilinogen Ur Leukocyte Esterase Urine RBC Urine WBC Ur Squamous Epith Cells Urine Bacteria Ur Microscopic Review Urine Culture Comments Ethyl Alcohol < 5.0 06/18/20 06/18/20 01:40 01:56 WBC RBC Hgb Hct MCV MCH MCHC RDW Plt Count MPV Neut # (Auto) Lymph # (Auto) [place] # (Auto) Eos # (Auto) Baso # (Auto) Absolute Nucleated RBC Nucleated RBC % PT INR APTT Sodium Potassium Chloride Carbon Dioxide Anion Gap BUN Creatinine Estimated GFR (MDRD) Glucose Estimat Average Glucose 255 H Hemoglobin A1c % 10.5 H Calcium Total Bilirubin AST ALT Alkaline Phosphatase Total Protein Albumin Globulin Albumin/Globulin Ratio Lipase Urine Color YELLOW Urine Clarity CLEAR Urine pH 6.0 Ur Specific [place] 1.015 Urine Protein 100 H Urine Glucose (UA) >=1000 H Urine Ketones 15 H Urine Occult Blood TRACE-INTA Urine Nitrite NEGATIVE Urine Bilirubin NEGATIVE Urine Urobilinogen 0.2 (NORMAL) Ur Leukocyte Esterase NEGATIVE Urine RBC 0-5 Urine WBC 0-3 Ur Squamous Epith Cells NONE SEEN Urine Bacteria None Seen Ur Microscopic Review INDICATED Urine Culture Comments NOT INDICATED Ethyl Alcohol PD MEDICAL DECISION MAKING - ED course Complexity details: reviewed results, re-evaluated patient, considered differential, d/w patient ED course: heart rate normalized (70s-90s) after IV fluids, IV lopressor, and IV lorazepam. He does not show overt signs of alcohol withdrawal (not tremulous, no n/v), but by HPI, some degree of alcohol withdrawal could be contributing to his HTN and tachycardia. He has not taken his antihypertensive, statin, or clopidogrel since January and he is provided prescriptions for all three. He is also given keflex and rx for keflex for what appears to be a dental infection. He says he will seek follow up and I advised him that he also needs to be rechecked in outpatient setting for the hyperglycemia. Departure - Departure Disposition: Home, Self Care Clinical Impression: Weakness, Dental infection, Hyperglycemia Hypertension Qualifiers: Hypertension type: essential hypertension Qualified Code(s): I10 - Essential (primary) hypertension Condition: Good Instructions: ED Abscess Dental, ED HTN Established, ED Weakness UKO, ED Hyperglycemia New Susp Diabetes Follow-Up: Demario Jett DO [Provider Admit Priv/Credential] - Prescriptions: LORazepam [Ativan] 0.5 mg PO TID PRN #14 tablet PRN Reason: Anxiety Atorvastatin Calcium 40 mg PO DAILY #30 tablet cephALEXin [Keflex] 500 mg PO Q6H #28 Metoprolol Tartrate [Lopressor] 100 mg PO DAILY #30 tablet Clopidogrel [Plavix] 75 mg PO DAILY #30 tablet Comments: It is very important that you follow up with a primary care provider and your real estate loan officer within the next 1-2 weeks. You will need your blood sugar rechecked and a prescribing physician for your medications. Also, your primary care provider can follow up on the A1C result. Discharge Date/Time: 06/18/20 04:13
[2020-06-18] MEDS ORDERED: SODIUM CHLORIDE 0.9% 1,000 ML IV STA (01:34)
[2020-06-18] MEDS ORDERED: METOPROLOL 5 MG/5 ML VIAL IVP STA ×3 (01:34→02:21)
[2020-06-18] MEDS ORDERED: LORazepam 2 MG/ML VIAL IVP STA (01:34)
[2020-06-18] MEDS ORDERED: cephALEXin 250 MG CAPSULE PO STA (01:36)
[2020-06-18 01:45] LABS: BASOPHILS # (AUTO) 0.1 10^3/uL (0.0-0.1); BASOPHILS % (AUTO) 0.6 %; EOSINOPHILS # (AUTO) 0.1 10^3/uL (0.0-0.7); EOSINOPHILS % (AUTO) 1.3 %; HCT - HEMATOCRIT 49.1 % (42.0-52.0); HGB - HEMOGLOBIN 17.2 g/dL (14.0-18.0); LYMPHOCYTES # (AUTO) 1.7 10^3/uL (1.5-3.5); LYMPHOCYTES % (AUTO) 16.3 %; MEAN CORPUSCULAR HEMOGLOBIN 31.7 pg (27.0-31.0); MEAN CORPUSCULAR VOLUME 90.6 fL (80.0-94.0); MONOCYTES # (AUTO) 0.7 10^3/uL (0.0-1.0); NEUTROPHILS # (AUTO) 7.9 10^3/uL (1.5-6.6); NEUTROPHILS % (AUTO) 74.5 %; PLT - PLATELET COUNT 186 10^3/uL (130-450); RED BLOOD COUNT 5.42 10^6/uL (4.70-6.10); RED CELL DISTRIBUTION WIDTH 11.9 % (12.0-15.0); WHITE BLOOD COUNT 10.6 x10^3/uL (4.8-10.8)
[2020-06-18 01:58] LABS: ALBUMIN 3.9 g/dL (3.2-5.5); ALBUMIN/GLOBULIN RATIO 1.2 (1.0-2.2); ALKALINE PHOSPHATASE 81 IU/L (42-121); ALT ALANINE AMINOTRANSFERASE 44 IU/L (10-60); AST ASPARTATE AMINOTRANSFERASE 33 IU/L (10-42); BILIRUBIN,TOTAL 0.8 mg/dL (0.2-1.0); BUN - BLOOD UREA NITROGEN 11 mg/dL (6-20); CALCIUM 8.7 mg/dL (8.5-10.3); CARBON DIOXIDE - CO2 22 mmol/L (21-32); CHLORIDE 93 mmol/L (101-111); CREATININE 0.8 mg/dL (0.6-1.2); ETOH - ETHANOL < 5.0 mg/dL; GFR - MDRD 103 (>89); GLUCOSE 272 mg/dL (70-100); LIPASE 33 U/L (22-51); POTASSIUM 4.3 mmol/L (3.5-5.0); SODIUM 129 mmol/L (135-145); TOTAL PROTEIN 7.2 g/dL (6.7-8.2)
[2020-06-18 02:04] LABS: BILIRUBIN,URINE NEGATIVE (NEGATIVE); GLUCOSE, URINE (UA) >=1000 mg/dL (NEGATIVE); KETONES,URINE (UA) 15 mg/dL (NEGATIVE); LEUKOCYTE ESTERASE, URINE NEGATIVE (NEGATIVE); NITRITE,URINE NEGATIVE (NEGATIVE); OCCULT BLOOD,URINE TRACE-INTA (NEGATIVE); PROTEIN,URINE 100 mg/dL (NEGATIVE); UROBILINOGEN,URINE 0.2 (NORMAL) E.U./dL (NORMAL)
[2020-06-18 02:05] LABS: PARTIAL THROMBOPLASTIN TIME 28.6 secs (24.9-33.3)
[2020-06-18 02:06] LABS: CLARITY,URINE CLEAR (CLEAR)
[2020-06-18 02:13] LABS: WBC,URINE 0-3 /HPF (0-3)
[2020-06-18 02:14] LABS: BACTERIA,URINE None Seen /HPF (None Seen); RBC,URINE 0-5 /HPF (0-5); SQUAMOUS EPITHELIAL CELL,UR NONE SEEN (<= Few)
[2020-06-18] MEDS ORDERED: METOPROLOL 5 MG/5 ML VIAL IVP ONE ×2 (02:20→02:33)
[2020-06-18] MEDS ORDERED: METOPROLOL TARTRATE 50 MG TABLET PO STA (04:05)
[2020-06-18 04:11] VITALS: BP 176/101
[2020-06-18 12:18] LABS: ESTIMATED AVERAGE GLUCOSE 255 mg/dL (70-100); HEMOGLOBIN A1c% 10.5 % (4.27-6.07)
== END 2020-06-18 04:13 | disposition home or self-care (01) ==
LOC: EDUNIT# → ED 01:05
DX: R53.1 Weakness (principal); K04.7 Periapical abscess without sinus; R73.9 Hyperglycemia, unspecified
CPT/HCPCS: 36415; 80053; 80320; 81001; 83036; 83690; 85025; 85610; 85730; 93005; 96361; 96374; 96375; 99283; 99284; A9270; J2060; 81003; 87086

== ENCOUNTER 2021-11-27 10:15 | Outpatient (CLI) | payer MEDICAID ==
[2021-11-27 11:49] LABS: BASOPHILS # (AUTO) 0.1 10^3/uL (0.0-0.1); BASOPHILS % (AUTO) 0.5 %; EOSINOPHILS # (AUTO) 0.2 10^3/uL (0.0-0.7); HCT - HEMATOCRIT 52.5 % (42.0-52.0); LYMPHOCYTES # (AUTO) 2.9 10^3/uL (1.5-3.5); LYMPHOCYTES % (AUTO) 27.6 %; MEAN CORPUSCULAR HEMOGLOBIN 30.4 pg (27.0-31.0); MEAN CORPUSCULAR HGB CONC 34.3 g/dL (32.0-36.0); MEAN CORPUSCULAR VOLUME 88.7 fL (80.0-94.0); MEAN PLATELET VOLUME 9.8 fL (7.4-11.4); MONOCYTES # (AUTO) 0.8 10^3/uL (0.0-1.0); MONOCYTES % (AUTO) 7.8 %; NEUTROPHILS # (AUTO) 6.4 10^3/uL (1.5-6.6); NEUTROPHILS % (AUTO) 61.9 %; PLT - PLATELET COUNT 300 10^3/uL (130-450); RED BLOOD COUNT 5.92 10^6/uL (4.70-6.10); RED CELL DISTRIBUTION WIDTH 12.7 % (12.0-15.0); WHITE BLOOD COUNT 10.4 x10^3/uL (4.8-10.8)
[2021-11-27 12:14] LABS: CREATININE,URINE 294.1 mg/dL; MICROALBUM/CREATININE RATIO,UR 168.7 ug/mg (<30.0); MICROALBUMIN,URINE 49.6 mg/dL (0-300.0)
[2021-11-27 12:21] LABS: ALBUMIN 4.3 g/dL (3.2-5.5); ALBUMIN/GLOBULIN RATIO 1.2 (1.0-2.2); ALKALINE PHOSPHATASE 72 IU/L (42-121); ALT ALANINE AMINOTRANSFERASE 21 IU/L (10-60); AST ASPARTATE AMINOTRANSFERASE 14 IU/L (10-42); BILIRUBIN,TOTAL 0.7 mg/dL (0.2-1.0); BUN - BLOOD UREA NITROGEN 10 mg/dL (6-20); CALCIUM 9.4 mg/dL (8.5-10.3); CARBON DIOXIDE - CO2 26 mmol/L (21-32); CHLORIDE 101 mmol/L (101-111); CHOL/HDL RATIO 9.8 (<5.0); CHOLESTEROL 264 mg/dL; CREATININE 0.9 mg/dL (0.6-1.2); GFR - MDRD 89 (>89); GLUCOSE 134 mg/dL (70-100); HDL CHOLESTEROL 27 mg/dL; LDL CHOLESTEROL,CALCULATED 198 mg/dL; LDL/HDL RATIO 7.3 (<3.6); POTASSIUM 4.2 mmol/L (3.5-5.0); SODIUM 135 mmol/L (135-145); TOTAL PROTEIN 7.9 g/dL (6.7-8.2); TRIGLYCERIDES 194 mg/dL; VLDL CHOLESTEROL 39 mg/dL
[2021-11-27 14:24] LABS: ESTIMATED AVERAGE GLUCOSE 140 mg/dL (70-100); HEMOGLOBIN A1c% 6.5 % (4.27-6.07)
== END 2021-11-27 10:16 | disposition home or self-care (01) ==
LOC: LAB.N 10:15
PROVIDERS: ATTEND Nurse Practitioner
DX: E55.9 Vitamin D deficiency, unspecified (principal); I10 Essential (primary) hypertension; E78.5 Hyperlipidemia, unspecified; E11.9 Type 2 diabetes mellitus without complications
CPT/HCPCS: 36415; 80053; 80061; 82043; 82306; 82570; 83036; 83721; 85025

== ENCOUNTER 2023-10-18 09:41 | Emergency (ER) | payer MEDICAID ==
--- NOTE | 2023-10-18 10:10 | ED Physician Documentation ---
PD HPI CHEST PAIN - Stated complaint Stated Complaint: CHEST PAIN,SOA - Chief complaint Chief Complaint: Cardiac - History obtained from History obtained from: Patient - Additional information Additional information: He has a history of non-STEMI in 2019. Per his description it sounds like he went up to [place] and they did a cath with a subendocardial vessel that was "kinked" but not really amenable to any specific intervention and as such did not receive stenting. He lost quite a bit of weight but continues to smoke. Over the last 2 weeks has developed intermittent substernal chest pain, it is associate with shortness of breath. He is not necessarily noting any change with exertion but nitroglycerin is certainly helpful within minutes after taking it. PD PAST MEDICAL HISTORY - Past Medical History Cardiovascular: Hypertension, High cholesterol Respiratory: None Neuro: None Endocrine/Autoimmune: Other GI: None : None HEENT: None Psych: None Musculoskeletal: None Derm: None - Past Surgical History Past Surgical History: No Ortho: Other - Present Medications Home Medications: Ambulatory Orders Medication Instructions Recorded Confirmed Nitroglycerin [Nitrostat] 0.4 mg SL PRN PRN #30 tab.subl 01/15/19 10/18/23 - Allergies Allergies/Adverse Reactions: Allergies Allergy/AdvReac Type Severity Reaction Status Date / Time No Known Drug Allergies Allergy Verified 10/18/23 09:52 - Social History Does the pt smoke?: Yes Smoking Status: Current every day smoker Does the pt drink ETOH?: Yes Does the pt have substance abuse?: No - Immunizations Immunizations are current?: Yes - POLST Patient has POLST: No PD ED PE NORMAL - Vitals Vital signs reviewed: Yes - General General: Alert and oriented X 3, No acute distress - Cardiac Cardiac: RRR, No murmur - Respiratory Respiratory: No respiratory distress, Clear bilaterally - Abdomen Abdomen: Non tender - Extremities Extremities: No edema, No calf tenderness / cord - Neuro Neuro: Alert and oriented X 3, Normal speech Results - Vitals Vitals: Vital Signs - 24 hr 10/18/23 10/18/23 10/18/23 09:52 10:39 11:13 Temperature 36.7 C Heart Rate 120 H 101 H 87 Respiratory 22 18 16 Rate Blood Pressure 179/108 H 165/97 H 173/99 H O2 Saturation 99 94 97 10/18/23 10/18/23 11:30 12:00 Temperature Heart Rate 86 81 Respiratory 17 16 Rate Blood Pressure 159/89 H 177/88 H O2 Saturation 100 96 Oxygen O2 Source Room air - EKG (time done) 0957 EKG releavant findings:: EKG personally interpreted by author of this note. Relevant findings are: Rate: Rate (enter#) (103) Rhythm: Sinus tachycardia, LAE [place]: Normal Intervals: Normal [place] QRS: Normal Ischemia: Normal ST segments - Labs Labs: Laboratory Tests 10/18/23 10/18/23 10/18/23 10:08 10:08 12:30 WBC 8.3 RBC 5.54 Hgb 16.8 Hct 49.6 MCV 89.5 MCH 30.3 MCHC 33.9 RDW 12.2 Plt Count 257 MPV 9.0 Neut # (Auto) 4.7 Lymph # (Auto) 2.7 [place] # (Auto) 0.6 Eos # (Auto) 0.3 Baso # (Auto) 0.1 Absolute Nucleated RBC 0.00 Nucleated RBC % 0.0 Sodium 131 L Potassium 4.3 Chloride 99 L Carbon Dioxide 24 Anion Gap 8.0 BUN 16 Creatinine 1.0 Estimated GFR (MDRD) 78 L Glucose 192 H Calcium 9.0 Total Bilirubin 0.5 AST 13 ALT 17 Alkaline Phosphatase 72 Troponin I High Sens 27.3 H* 30.2 H* Total Protein 7.0 Albumin 4.1 Globulin 2.9 Albumin/Globulin Ratio 1.4 Lipase 34 - Rads (name of study) Single view chest x-ray showing cardiomegaly and mild congestion Relevant Findings:: Final report received, EMP independent interpretation of test PD Medical Decision Making - ED course ED course: 53-year-old gentleman with history of DE with nonintervenable coronary anatomy presents with intermittent chest pain. He is modestly tachycardic, that said the description certainly does not sound like PE. It is concerning for unstable angina though. His EKG is not ischemic. Plan to check troponins and administer aspirin and beta-blockade to start. At the time of the EKGs his pain is minimal and it actually sounds like today he is is much worried about anything else that he is about to run out of nitroglycerin at home. Subsequently his troponin was positive with concern for some cardiomegaly and CHF on chest x-ray. He was comfortable here and relatively pain-free. We started looking for a bed at a facility capable of cardiac workup and the local facilities were full but he was excepted by Dr. Herrmann to [facility] at approximately 11:50 AM. Subsequently patient wanted to make his own way down there, i.e. not on an ambulance. I had a long discussion with him and discussed with him the risks of sudden cardiac or disability exacerbated by not being monitored in a safe setting. He understands and still plans to transport himself to [facility]. Departure - Departure Disposition: 02 Transfer Acute Care Hosp Clinical Impression: Unstable angina Condition: Serious Forms: PCP List
[2023-10-18 10:13] LABS: BASOPHILS # (AUTO) 0.1 10^3/uL (0.0-0.1); EOSINOPHILS # (AUTO) 0.3 10^3/uL (0.0-0.7); EOSINOPHILS % (AUTO) 3.2 %; HCT - HEMATOCRIT 49.6 % (42.0-52.0); HGB - HEMOGLOBIN 16.8 g/dL (14.0-18.0); LYMPHOCYTES # (AUTO) 2.7 10^3/uL (1.5-3.5); LYMPHOCYTES % (AUTO) 31.8 %; MEAN CORPUSCULAR HEMOGLOBIN 30.3 pg (27.0-31.0); MEAN CORPUSCULAR HGB CONC 33.9 g/dL (32.0-36.0); MEAN CORPUSCULAR VOLUME 89.5 fL (80.0-94.0); MONOCYTES # (AUTO) 0.6 10^3/uL (0.0-1.0); MONOCYTES % (AUTO) 7.6 %; NEUTROPHILS # (AUTO) 4.7 10^3/uL (1.5-6.6); NEUTROPHILS % (AUTO) 56.2 %; PLT - PLATELET COUNT 257 10^3/uL (130-450); RED BLOOD COUNT 5.54 10^6/uL (4.70-6.10); RED CELL DISTRIBUTION WIDTH 12.2 % (12.0-15.0); WHITE BLOOD COUNT 8.3 x10^3/uL (4.8-10.8)
[2023-10-18 10:28] LABS: ALBUMIN 4.1 g/dL (3.2-5.5); ALBUMIN/GLOBULIN RATIO 1.4 (1.0-2.2); BILIRUBIN,TOTAL 0.5 mg/dL (0.2-1.0); POTASSIUM 4.3 mmol/L (3.5-4.5)
[2023-10-18] MEDS: ASPIRIN CHEW 81 MG TABLET PO STA (10:34)
[2023-10-18 10:36] LABS: TROPONIN I HIGH SENSITIVITY 27.3 ng/L (2.3-19.7)
[2023-10-18] MEDS: METOPROLOL 5 MG/5 ML VIAL IVP STA (10:36)
[2023-10-18] MEDS: METOPROLOL TARTRATE 50 MG TABLET PO STA (10:37)
--- NOTE | 2023-10-18 11:02 | XRAY Report ---
PROCEDURE: Chest 1V INDICATIONS: Chest pain TECHNIQUE: One view of the chest was acquired. COMPARISON: 01/15/2019 and 07/22/2018. FINDINGS: Surgical changes and devices: None. Lungs and pleura: No pleural effusions or pneumothorax. Left pulmonary vascular congestion is seen. No focal infiltrate. Mediastinum: Mediastinal contours appear normal. Heart size is enlarged. Bones and chest wall: No suspicious bony lesions. Overlying soft tissues appear unremarkable. IMPRESSION: Cardiomegaly and mild congestion. No definite focal infiltrate. No pleural effusion or pneumothorax. Reviewed by: Josh Soliman MD on 10/18/2023 11:01 AM PDT Approved by: Josh Soliman MD on 10/18/2023 11:01 AM PDT Station ID: [id number]
[2023-10-18 13:17] VITALS: O2SAT 97
[2023-10-18] MEDS: NITROGLYCERIN SL 0.4 MG TABLET SL STA (13:21)
[2023-10-18 14:32] VITALS: BP 151/91
== END 2023-10-18 14:28 | disposition short-term general hospital (02) ==
LOC: ED 09:41
DX: I20.0 Unstable angina (principal); I10 Essential (primary) hypertension; E78.00 Pure hypercholesterolemia, unspecified; F17.200 Nicotine dependence, unspecified, uncomplicated; I25.2 Old myocardial infarction
CPT/HCPCS: 36415; 71045; 80053; 83690; 84484; 85025; 93005; 96374; 99284; 99285; A9270